=== PATIENT | male | born 1980 | race Caucasian/White ===

== ENCOUNTER → 2025-02-22 | Outpatient (CLI) | payer MEDICAID, SELFPAY ==
--- NOTE | 2025-02-22 | XR_ITS ---
Examination: Wrist, right 3 views Technique: Wrist AP, oblique, lateral 3 views Date and time of exam: February 22, 2025 1259 hours INDICATIONS: Patient fell 2 weeks ago with injury of the wrist, wrist pain FINDINGS: No acute rib fracture, no foreign body IMPRESSION: No acute wrist fracture The distal ulna is mildly dorsally positioned on the lateral view, clinical correlation advised Please see the hand report
--- NOTE | 2025-02-22 | XR_ITS ---
Examination: Hand, right 3 views Technique: Hand AP, oblique, lateral 3 views Date and time of exam: February 22, 2025 1215 hours INDICATIONS: Patient fell 2 weeks ago with injury to the hand, hand pain. FINDINGS: Severely comminuted fracture second metacarpal head and neck Digits intact IMPRESSION: Severely comminuted fractures second metacarpal head and neck with mild to moderate offset of the numerous fracture fragments
== END | disposition home or self-care (01) ==
LOC: CDIM 11:15
PROVIDERS: Referring Provider Nurse Practitioner Gerontology; Visit Provider Nurse Practitioner Gerontology
DX: S62.330A Displaced fracture of neck of second metacarpal bone, right hand, initial encounter for closed fracture (principal); S62.390A Other fracture of second metacarpal bone, right hand, initial encounter for closed fracture; S69.91XA Unspecified injury of right wrist, hand and finger(s), initial encounter; W19.XXXA Unspecified fall, initial encounter
CPT/HCPCS: 73110; 73130